=== PATIENT | female | born 1950 ===

== ENCOUNTER 2024-03-30 06:00 | Day surgery (SDC) | payer OTHER ==
[2024-03-27 12:46] VITALS: BP 140/85
[~2024-03-30] VITALS: Ht 180.3 cm; Wt 106.6 kg
[~2024-03-30 06:00] MED LIST: ANASTROZOLE1 MG PO; LOSARTAN POTASS50 MG PO; SYNTHROID200 MCG PO; XARELTO20 MG PO
[2024-03-30] MEDS ORDERED: CEFAZOLIN SODIUM 1,000 MG VIAL IV ONE (17:45)
== END 2024-03-30 19:05 | disposition home or self-care (01) ==
LOC: CIR.AMB 06:00
PROVIDERS: ATTEND Surgery
DX: C50.411 Malignant neoplasm of upper-outer quadrant of right female breast (principal); C50.412 Malignant neoplasm of upper-outer quadrant of left female breast; N60.81 Other benign mammary dysplasias of right breast; R59.0 Localized enlarged lymph nodes